=== PATIENT | male | born 1955 | race Caucasian/White ===

== ENCOUNTER 2017-11-18 13:20 | Observation (INO) | payer OTHER ==
[2017-11-18] MEDS ORDERED: HEPARIN SODIUM,PORCINE 5,000 UNIT/ML 1 ML VIAL ONE (16:00)
[2017-11-18] MEDS ORDERED: SODIUM CHLORIDE 0.9% 1,000 ML BAG ONE (16:00)
[2017-11-18] MEDS ORDERED: NITROGLYCERIN OINT 1 INCH/GM PACKET TOPICAL ONE (16:00)
[2017-11-18] MEDS ORDERED: metFORMIN 500 MG TAB ONE (16:00)
[2017-11-18] MEDS ORDERED: SODIUM CHLORIDE 0.9% 500 ML BAG ONE (16:00)
[2017-11-18] MEDS ORDERED: MELOXICAM 7.5 MG TAB ONE (16:00)
[2017-11-18] MEDS ORDERED: ASPIRIN 81 MG ONE (16:00)
[2017-11-18] MEDS ORDERED: HEPARIN SOD,PORK IN 0.45% NACL PMX 25,000 UNIT/500 ML BAG IV ONE (16:00)
--- NOTE | 2017-11-19 08:52 | XR ---
EXAMINATION TYPE: TEMPORARY DATE OF EXAM: 11/18/2017 COMPARISON: NONE INDICATION: Chest pain left arm pain shortness of breath history of asthma. TECHNIQUE: Frontal and lateral views of the chest are obtained. FINDINGS: The heart size is normal. The pulmonary vasculature is normal. At the first rib ends there is a 0.9 cm rounded density on this could be summation density. Underlyin g pulmonary nodules not excluded. Follow-up is recommended. No suspicious consolidations are evident.. IMPRESSION: 1. No acute pulmonary process. 2. Nodular density at the left apex. Follow-up exams are recommended. This could be related to summat ion density or be an intraparenchymal nodule.
--- NOTE | 2017-11-19 09:35 | CONS ---
CONSULTATION This is a 62-year-old gentleman with a known history of type 2 diabetes and hypertension, who sees a mineral engineer in the [facility] [place]. He has been under lot of stress with financial issues. 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 For the last 3 days he has been having pain in the left arm and also some pain in the left neck area with radiation seems more like a cervical radiculopathy type symptoms, but yesterday they got worse and the pain. He had some sharp pains in the left anterior chest and drove himself here to the emergency room. His troponins are normal. He is resting comfortably. EKG revealed a sinus bradycardia without any significant symptoms. The quality of chest pain is very atypical. About a year ago, he had a stress test which was normal according to the patient and this was performed by his mineral engineer in [place], [place]. At the time of my evaluation, he is asymptomatic, resting comfortably and indicates to me that stress may have caused his symptoms. PAST MEDICAL HISTORY: 1. Bronchial asthma. 2. Type 2 diabetes mellitus. 3. Hypertension. 4. Normal stress test per patient 1 year ago. MEDICATIONS: At home include metformin and losartan HCTZ and inhalants. On examination blood pressure is 140/70, pulse rate is 58 per minute. HEENT unremarkable. Fundus was not examined by me. Neck is supple. No JVD. I do not hear a carotid bruit. There is no thyromegaly. Heart exam reveals S1, S2 heard normally without a rub, murmur or gallop. Lungs are clear. Abdomen is soft, nontender. Lower extremity with normal pulses, no edema. Central nervous system is normal. EKG revealed sinus mechanism, no acute changes. LAB DATA: Revealed 3 sets of troponins are normal. IMPRESSION: 1. Atypical pain, probably some cervical arthritis with some radiculopathy type picture. No clinical evidence to suggest any acute ongoing myocardial ischemia. 2. Type 2 diabetes mellitus. 3. Hypertension. 4. History of bronchial asthma, which is not an active problem at this time. RECOMMENDATION: I am recommending that we discontinue heparin, increase activity. Initial EKG was reviewed, reveals sinus bradycardia. No acute changes. I am recommending that we can increase activity discharge the patient and have him follow up with his mineral engineer for probably a repeat stress testing down the road. In addition, he should have further investigation for his cervical radiculopathy type picture that he has. However, the symptoms have resolved. He may benefit from diagnostic tests and if necessary physical therapy. MMODL / IJN: [id number] /
[2017-11-19] MEDS ORDERED: MONTELUKAST 10 MG TAB PO PRN (09:47)
[2017-11-19] MEDS ORDERED: ALBUTEROL NEBULIZED 2.5 MG/3 ML INHALATION PRN (09:47)
[2017-11-19] MEDS ORDERED: LOSARTAN 50 MG TAB PO SCH (10:00)
[2017-11-19] MEDS ORDERED: metFORMIN 500 MG TAB PO SCH (10:00)
[2017-11-19] MEDS ORDERED: SYMBICORT 160-4.5 MCG INHALER INHALATION SCH (10:00)
[2017-11-19] MEDS ORDERED: FENOFIBRATE 160 MG TAB PO SCH (10:00)
[2017-11-19] MEDS ORDERED: MELOXICAM 7.5 MG TAB PO SCH (10:00)
[2017-11-19] MEDS ORDERED: PANTOPRAZOLE 40 MG TABLET PO SCH (10:00)
[2017-11-19] MEDS ORDERED: ASPIRIN 325 MG TAB PO SCH (10:00)
[2017-11-19] MEDS ORDERED: LOSARTAN-HCTZ 50-12.5 MG 1 EACH TAB PO SCH (10:00)
[2017-11-19] MEDS ORDERED: NITROGLYCERIN OINT 1 INCH/GM PACKET TOPICAL SCH (12:00)
[2017-11-19] MEDS ORDERED: MULTIVITAMINS, THERA 1 EACH TAB PO SCH (12:00)
[2017-11-19 12:10] VITALS: BP 124/77; PULSE 51; RESP 16; TEMP 98.1
--- NOTE | 2017-11-19 13:02 | HP ---
HISTORY AND PHYSICAL CHIEF COMPLAINT: Chest pain and shortness of breath. BRIEF HISTORY ON THIS PATIENT: This is a 62-year-old male patient with a history of diabetes type 2 and hypertension, who presented to ED yesterday with a complaint of sharp pain in the left anterior chest accompanied by shortness of breath. The patient relates that he is a parkinson by profession and he has been under lot of stress lately and for past 3 days, he has been having pain in his left arm with some aching and pain in the left neck area, which was associated with shortness of breath. There is no diaphoresis. The patient claims that the day of presenting to the ED, the symptoms got really worse and were associated with some shortness of breath and diaphoresis, so he drove himself to the emergency room. In the ED, patient's EKG showed sinus bradycardia and initial set of troponins was negative. The patient is admitted for further cardiac evaluation. 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 According to the patient, he had a stress test done about a year ago that was normal and it was done in [place], [place]. The patient has a past medical history that is significant for history of: 1. Hypertension. 2. Hyperlipidemia. 3. History of diabetes mellitus type 2. 4. History of asthma. 5. Gastroesophageal reflux disease and. 6. History of chronic back pain and. 7. History of DJD. 8. Chronic sinusitis. Past surgical history significant for: 1. Orthopedic surgeries on the left 4th and 5th digits. 2. Laser surgery for chronic sinusitis. The patient has no known allergies. MEDICATIONS: The patient is on: 1. Losartan with hydrochlorothiazide 100/12.5 mg 1 p.o. daily. 2. Fenofibrate 160 mg 1 p.o. daily. 3. Metformin 750 mg 1 p.o. daily. 4. Symbicort 160/4.5, 2 puffs inhaled b.i.d. 5. Multivitamins 1 p.o. daily. 6. Singulair 10 mg p.o. q.h.s. 7. Mobic 7.5 mg p.o. daily. 8. Prilosec 20 mg p.o. daily and also. 9. Albuterol 2.5 mg inhalation solution every 6 hours p.r.n. SOCIAL HISTORY: The patient denies any history of smoking or alcohol abuse, is a parkinson by profession, denies history of drug abuse. Family history is significant for a history of MO in maternal grandfather and history of coronary artery disease in mother, also gives history of dementia in both sets of grandparents. REVIEW OF SYSTEMS: ENT: Patient denies any hearing or vision loss. CARDIOVASCULAR: As described above. GI: Denies any nausea, vomiting or diarrhea. GENITOURINARY: No urinary frequency or dysuria. NERVOUS SYSTEM: Denies any headaches, lightheadedness dizziness. ALLERGY/IMMUNOLOGY: History of asthma as described above. MUSCULOSKELETAL: The patient has a history of DJD. HEMATOLOGY/ONCOLOGY: No history of anemia. ENDOCRINE: The patient has a history of diabetes type 2 as described above. CONSTITUTIONAL: No weight loss. No anorexia. DERMATOLOGY: No skin rashes or pigmentation. RHEUMATOLOGY: Polyarthralgias as described above. PSYCHIATRIC: No history of anxiety or depression. PHYSICAL EXAMINATION: Patient is awake, alert and oriented x3. He is in no acute distress. VITAL SIGNS: Temperature of 97.8, pulse 50, respirations 16, blood pressure 124/77, O2 saturation of 97% on room air. HEENT: Atraumatic, normocephalic. Pupils are equal and reactive to light. Extraocular movements are intact. Conjunctivae are normal. Buccal mucosa is fair. Neck is supple. No goiter or lymphadenopathy. JVD is negative. No carotid bruit heard. No lymph node enlargement. CARDIOVASCULAR SYSTEM: Heart is regular rate, rhythm. S1, S2 are heard normally. There is no murmur or gallop rhythm. Lungs are clear to auscultate without any rales, rhonchi or wheezes. ABDOMEN: Soft and nontender, nondistended. No organomegaly and bowel sounds are positive. EXTREMITIES: No edema, clubbing or cyanosis. Patient does have some arthritic changes in bilateral digits. NERVOUS SYSTEM: Patient is alert, oriented x3. He has no gross motor or sensory deficit. No focal deficit. LYMPHATIC SYSTEM: No lymph nodes are palpable in neck or axillae. Skin is without any ulcerations or a or rash or pigmentation. RHEUMATOLOGY: As above, patient does have some arthritic deformities in the fingers of both hands, but other than that, moves all 4 extremities and there are no joint effusions. LABORATORY AND X-RAY DATA: On admission shows all 3 sets of troponin were negative. Less than 0.012. PTT was 36.95. CK is 236, CK-MB 3.3 today. CBC: White blood count of 5.1, hemoglobin 14, hematocrit 41.2 and platelet count of 280. Chemical profile: Sodium 142, potassium 4.1, chloride 106, bicarb 25, BUN of 20, creatinine 0.9. An EKG as described above showed sinus bradycardia, no acute changes. Chest x-ray done on admission shows no acute pulmonary process, nodular density 0.9 cm at the where 1st rib ends, most likely summation density. ASSESSMENT: 1. Chest pain, rule out acute coronary syndrome. 2. Hypertension. 3. Hyperlipidemia. 4. Diabetes mellitus type 2. 5. Bronchial asthma. 6. Degenerative joint disease with the possible cervical involvement with elements of cervical radiculopathy. Plan is to admit the patient to observation unit, monitor cardiac enzymes, EKG, consult Cardiology, start patient on IV fluids. No IV heparin at this point. Resume all home medications. Accu-Cheks with sliding scale. Start patient on nitroglycerin paste 1 inch every 6 hours and aspirin 325 mg daily. Further recommendations per Cardiology. Patient is FULL CODE and DVT prophylaxis. MMODL / IJN: [id number] /
[2017-11-19 13:16] LABS: HCT 41.2 % (39.0-53.0); MCH 30.4 pg (25.0-35.0); MCHC 34.1 g/dL (31.0-37.0); MCV 89.3 fL (80.0-100.0); Mean Platelet Volume 6.5; Platelet Count 280 k/uL (150-450); RBC 4.61 m/uL (4.30-5.90); RDW 12.5 % (11.5-15.5); WBC 5.1 k/uL (3.8-10.6)
[2017-11-19 14:12] LABS: INR 1.1 (<1.2); Partial Thromboplastin Time 23.1 sec (22.0-30.0); Prothrombin Time 10.6 sec (9.0-12.0)
[2017-11-19 15:53] LABS: Creatine Kinase 236 U/L (55-170); Troponin I <0.012 ng/mL (0.000-0.034)
[2017-11-19 15:54] LABS: Creatine Kinase MB 3.3 ng/mL (0.0-2.4)
[2017-11-19 16:02] LABS: Eosinophils # (M) 0.31 k/uL (0-0.7); Lymphocytes # (M) 2.96 k/uL (1.0-4.8); Monocytes # (M) 0.36 k/uL (0-1.0); Neutrophils # (M) 1.48 k/uL (1.3-7.7); Neutrophils % (M) 29 %; Nucleated Red Blood Cells 0 /100 WBC (0-0); Total Cells Counted 100
[2017-11-19 16:03] LABS: Poikilocytosis (M) Present
[2017-11-19 16:26] LABS: ALT 46 U/L (21-72); AST 27 U/L (17-59); Albumin 4.1 g/dL (3.5-5.0); Alkaline Phosphatase 48 U/L (38-126); Anion Gap 11 mmol/L; Blood Urea Nitrogen 20 mg/dL (9-20); Calcium 9.7 mg/dL (8.4-10.2); Carbon Dioxide 25 mmol/L (22-30); Chloride 106 mmol/L (98-107); Glucose 88 mg/dL (74-99); Potassium 4.1 mmol/L (3.5-5.1); Sodium 142 mmol/L (137-145); Total Bilirubin 0.3 mg/dL (0.2-1.3)
[2017-11-19 17:00] LABS: Creatine Kinase 174 U/L (55-170); Troponin I <0.012 ng/mL (0.000-0.034)
[2017-11-19 17:02] LABS: Creatine Kinase MB 2.5 ng/mL (0.0-2.4)
[2017-11-19 17:57] LABS: Creatine Kinase 198 U/L (55-170); Troponin I <0.012 ng/mL (0.000-0.034)
[2017-11-19 17:58] LABS: Creatine Kinase MB 2.7 ng/mL (0.0-2.4)
[2017-11-19 19:49] LABS: Hemoglobin A1C 5.7 % (4.0-6.0)
--- NOTE | 2017-12-24 13:02 | DS ---
DISCHARGE SUMMARY DATE OF ADMISSION: 11/23/2017. DISCHARGE DATE: 11/08/2017 BRIEF HISTORY: The patient is a 62-year-old male with a history of diabetes mellitus, type 2, history of hypertension. He presented to ED with the complaint of left anterior chest pain that started when he was at work. 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 He was short of breath at the same time. PAST MEDICAL HISTORY: 1. Hypertension. 2. Hyperlipidemia. 3. Diabetes mellitus, type 2. 4. Asthma. 5. Gastroesophageal reflux disease. 6. Chronic back pain. 7. DJD. 8. Chronic sinusitis. PAST SURGICAL HISTORY: 1. Surgeries on left fourth and fifth digits. 2. Laser surgery for chronic sinusitis. MEDICATIONS: Patient is takin. Losartan with hydrochlorothiazide. 2. Fenofibrate. 3. Metformin. 4. Symbicort. 5. Multivitamin. 6. Singulair. 7. Mobic. 8. Prilosec. 9. Albuterol. BRIEF HOSPITAL COURSE: The patient was admitted to telemetry with a plan to monitor cardiac enzymes, EKG. Patient was started on IV fluids. He was started on IV heparin in the ED which was later discontinued by Cardiology due to low suspicion for coronary artery disease. All home medications were continued. Patient's blood sugars were monitored closely and were covered with sliding scale as needed. In the ED patient was started on nitroglycerin paste and aspirin. Cardiology saw the patient and recommended IV heparin to be discontinued. They did recommend a stress test as an outpatient in the near future. The patient was also recommended to follow up with primary care with possible cervical radiculopathy and possible physical therapy. The patient did not have any further complications after that. He was then discharged in stable condition with: 1. Ventolin nebulizer 2.5 mg every 6 hours as needed. 2. Aspirin 325 mg daily. 3. Symbicort 2 puffs b.i.d. 4. Fenofibrate 160 mg p.o. daily. 5. Mobic 7.5 mg p.o. daily. 6. Singulair 10 mg p.o. daily. 7. Multivitamin 1 daily. 8. Protonix 40 mg daily. He was discharged with a plan to follow up with his primary care physician and to follow up with Cardiology as an outpatient. MMODL / IJN: [id number] /
== END 2017-11-19 14:00 | disposition home or self-care (01) ==
LOC: EC 13:20 → 3OBS 17:15 → EC 17:26 → UNDOADMOB 17:26 → 3OBS 17:26 → EC 17:27 → 3OBS 17:27 → UNDOADMOB 17:27 → UNDODISOB 11-19 14:00 → EDSTATUS 12-17 23:46
PROVIDERS: ADMIT Internal Medicine; ATTEND Internal Medicine
DX: R07.89 Other chest pain (principal); M79.602 Pain in left arm; R61 Generalized hyperhidrosis; I10 Essential (primary) hypertension; E78.5 Hyperlipidemia, unspecified; E11.9 Type 2 diabetes mellitus without complications; J45.909 Unspecified asthma, uncomplicated; M19.90 Unspecified osteoarthritis, unspecified site; K21.9 Gastro-esophageal reflux disease without esophagitis; M54.9 Dorsalgia, unspecified; G89.29 Other chronic pain; J32.9 Chronic sinusitis, unspecified; F43.9 Reaction to severe stress, unspecified; Z79.84 Long term (current) use of oral hypoglycemic drugs; Z79.1 Long term (current) use of non-steroidal anti-inflammatories (NSAID); Z79.51 Long term (current) use of inhaled steroids; Z79.899 Other long term (current) drug therapy; Z82.49 Family history of ischemic heart disease and other diseases of the circulatory system
CPT/HCPCS: 99291 ×2; 93005; 80053; 82550 ×2; 82553 ×2; 84484 ×2; 85025; 85610; 85730 ×2; 83036; 71020; G0378 ×2; J1644 ×2

== ENCOUNTER 2019-09-09 12:05 | Observation (INO) | payer OTHER ==
[2019-09-09] MEDS ORDERED: ASPIRIN 81 MG PO STA (12:51)
[2019-09-09] MEDS ORDERED: NITROGLYCERIN OINT 1 INCH/GM PACKET TOPICAL STA (12:51)
--- NOTE | 2019-09-09 12:57 | ED ---
General Adult HPI - General Chief complaint: Chest Pain Stated complaint: Chest Pain, Back Spasms, Diabetic Time Seen by Provider: 09/09/19 12:25 Source: patient, RN notes reviewed Mode of arrival: wheelchair Limitations: no limitations - History of Present Illness Initial comments: Patient is a pleasant 64-year-old male presenting to the emergency department with back and chest discomfort. Onset of symptoms was yesterday at a wedding. Patient reached back and had sudden severe spasms of left upper back. Patient also had mild ache of the left arm. Back spasms only lasted about 5 minutes then resolved and then gone since that time. Arm discomfort remains however is very mild. Patient has mild ache in his chest today that is rated 1 or 2/10. Patient was sweaty yesterday with back discomfort. No nausea or dyspnea. Last stress test was around 6 months ago reported as normal. - Related Data Home Medications Medication Instructions Recorded Confirmed Albuterol Nebulized [Ventolin 2.5 mg INHALATION RT-Q6H PRN 11/19/17 09/09/19 Nebulized] Aspirin 81 mg PO DAILY 11/19/17 09/09/19 Losartan/Hydrochlorothiazide 1 tab PO DAILY 11/19/17 09/09/19 [Losartan-Hctz 100-25 mg Tab] Montelukast [Singulair] 10 mg PO HS 11/19/17 09/09/19 Multivitamins, Thera [Multivitamin 1 tab PO DAILY 11/19/17 09/09/19 (formulary)] Omeprazole [PriLOSEC] 20 mg PO DAILY 11/19/17 09/09/19 metFORMIN HCL [metFORMIN HCL ER] 750 mg PO HS 11/19/17 09/09/19 Albuterol Inhaler [Ventolin Hfa 1 - 2 puff INHALATION RT-Q6H PRN 09/09/19 09/09/19 Inhaler] Cholecalciferol [Vitamin D3 (25 2,000 unit PO DAILY 09/09/19 09/09/19 Mcg = 1000 Iu)] Rosuvastatin [Crestor] 5 mg PO HS 09/09/19 09/09/19 Previous Rx's Medication Instructions Recorded Budesonide-Formot 160-4.5 Mcg 2 puff INHALATION RT-BID puff 11/19/17 [Symbicort 160-4.5 Mcg Inhaler] Meloxicam [Mobic] 7.5 mg PO DAILY tab 11/19/17 Allergies Allergy/AdvReac Type Severity Reaction Status Date / Time No Known Allergies Allergy Verified 09/09/19 12:41 Review of Systems ROS Statement: Those systems with pertinent positive or pertinent negative responses have been documented in the HPI. ROS Other: All systems not noted in ROS Statement are negative. Constitutional: Denies: fever Eyes: Denies: eye pain ENT: Denies: ear pain Respiratory: Denies: cough Cardiovascular: Reports: as per HPI, chest pain Endocrine: Denies: fatigue Gastrointestinal: Denies: abdominal pain Genitourinary: Denies: dysuria Musculoskeletal: Reports: as per HPI Skin: Denies: rash Neurological: Denies: weakness Past Medical History Past Medical History: Asthma, Coronary Artery Disease (CAD), Diabetes Mellitus, GERD/Reflux, Hyperlipidemia, Hypertension Additional Past Medical History / Comment(s): seasonal allergies History of Any Multi-Drug Resistant Organisms: None Reported Past Surgical History: Orthopedic Surgery Additional Past Surgical History / Comment(s): finger Past Psychological History: No Psychological Hx Reported Smoking Status: Never smoker Past Alcohol Use History: Occasional Past Drug Use History: None Reported General Exam Limitations: no limitations General appearance: alert, in no apparent distress Head exam: Present: normocephalic Eye exam: Present: normal appearance, PERRL ENT exam: Present: normal oropharynx Neck exam: Present: normal inspection Respiratory exam: Present: normal lung sounds bilaterally. Absent: chest wall tenderness Cardiovascular Exam: Present: regular rate, normal rhythm Expanded Peripheral pulses: 2+: Radial (R), Radial (L), Posterior Tibialis (R), Posterior Tibialis (L), Dorsalis Pedis (R), Dorsalis Pedis (L) GI/Abdominal exam: Present: soft. Absent: tenderness Extremities exam: Present: normal inspection, full ROM. Absent: tenderness Back exam: Present: normal inspection. Absent: tenderness Neurological exam: Present: alert Psychiatric exam: Present: normal affect, normal mood Skin exam: Present: normal color Course Vital Signs 09/09/19 09/09/19 09/09/19 12:16 12:50 13:23 Temperature 98.2 F Pulse Rate 66 62 Pulse Rate [ 62 [employer] ] Respiratory 18 16 16 Rate Blood Pressure 130/78 116/63 O2 Sat by Pulse 98 99 Oximetry EKG Findings - EKG Comments: EKG Findings:: Sinus rhythm at 63. PVC is present. MI 184. QRS 90. QT 420. QTc 429. Normal axis. Normal QRS. No acute ST change. Medical Decision Making - Medical Decision Making Patient reevaluated and resting comfortably in bed. Patient and family updated on results and plan. Case was discussed in detail with Dr. Lira, covering for Dr. Ball, who admits for Dr. Pappas. - Lab Data Result diagrams: 09/09/19 13:02 09/09/19 13:02 Lab Results 09/09/19 09/09/19 09/09/19 Range/Units 13:02 13:02 13:02 WBC 5.9 (3.8-10.6) k/uL RBC 4.30 (4.30-5.90) m/uL Hgb 13.0 (13.0-17.5) gm/dL Hct 38.5 L (39.0-53.0) % MCV 89.4 (80.0-100.0) fL MCH 30.3 (25.0-35.0) pg MCHC 33.8 (31.0-37.0) g/dL RDW 13.0 (11.5-15.5) % Plt Count 258 (150-450) k/uL Neutrophils % 43 % Lymphocytes % 43 % Monocytes % 8 % Eosinophils % 3 % Basophils % 1 % Neutrophils # 2.5 (1.3-7.7) k/uL Lymphocytes # 2.5 (1.0-4.8) k/uL Monocytes # 0.4 (0-1.0) k/uL Eosinophils # 0.2 (0-0.7) k/uL Basophils # 0.0 (0-0.2) k/uL PT 10.1 (9.0-12.0) sec INR 0.9 (<1.2) APTT 24.1 (22.0-30.0) sec Sodium 141 (137-145) mmol/L Potassium 4.0 (3.5-5.1) mmol/L Chloride 106 (98-107) mmol/L Carbon Dioxide 25 (22-30) mmol/L Anion Gap 10 mmol/L BUN 16 (9-20) mg/dL Creatinine 0.79 (0.66-1.25) mg/dL Est GFR (CKD-EPI)AfAm >90 (>60 ml/min/1.73 sqM) Est GFR (CKD-EPI)NonAf >90 (>60 ml/min/1.73 sqM) Glucose 113 H (74-99) mg/dL Calcium 9.2 (8.4-10.2) mg/dL Magnesium 2.0 (1.6-2.3) mg/dL Total Bilirubin 0.3 (0.2-1.3) mg/dL AST 30 (17-59) U/L ALT 32 (21-72) U/L Alkaline Phosphatase 83 (38-126) U/L Troponin I (0.000-0.034) ng/mL Total Protein 7.1 (6.3-8.2) g/dL Albumin 4.0 (3.5-5.0) g/dL 09/09/19 Range/Units 13:02 WBC (3.8-10.6) k/uL RBC (4.30-5.90) m/uL Hgb (13.0-17.5) gm/dL Hct (39.0-53.0) % MCV (80.0-100.0) fL MCH (25.0-35.0) pg MCHC (31.0-37.0) g/dL RDW (11.5-15.5) % Plt Count (150-450) k/uL Neutrophils % % Lymphocytes % % Monocytes % % Eosinophils % % Basophils % % Neutrophils # (1.3-7.7) k/uL Lymphocytes # (1.0-4.8) k/uL Monocytes # (0-1.0) k/uL Eosinophils # (0-0.7) k/uL Basophils # (0-0.2) k/uL PT (9.0-12.0) sec INR (<1.2) APTT (22.0-30.0) sec Sodium (137-145) mmol/L Potassium (3.5-5.1) mmol/L Chloride (98-107) mmol/L Carbon Dioxide (22-30) mmol/L Anion Gap mmol/L BUN (9-20) mg/dL Creatinine (0.66-1.25) mg/dL Est GFR (CKD-EPI)AfAm (>60 ml/min/1.73 sqM) Est GFR (CKD-EPI)NonAf (>60 ml/min/1.73 sqM) Glucose (74-99) mg/dL Calcium (8.4-10.2) mg/dL Magnesium (1.6-2.3) mg/dL Total Bilirubin (0.2-1.3) mg/dL AST (17-59) U/L ALT (21-72) U/L Alkaline Phosphatase (38-126) U/L Troponin I <0.012 (0.000-0.034) ng/mL Total Protein (6.3-8.2) g/dL Albumin (3.5-5.0) g/dL - Radiology Data Radiology results: report reviewed (CT angios chest shows no acute process), image reviewed (Chest x-ray shows no acute process) Disposition Clinical Impression: Chest pain, Back pain Disposition: ADMITTED IP TO THIS HOSP Is patient prescribed a controlled substance at d/c from ED?: No Referrals: Ivan Pappas MD [Primary Care Provider] - 1-2 days Decision Time: 15:10
[2019-09-09 13:14] LABS: Basophils % (A) 1 %; Eosinophils # (A) 0.2 k/uL (0-0.7); Eosinophils % (A) 3 %; HCT 38.5 % (39.0-53.0); Lymphocytes # (A) 2.5 k/uL (1.0-4.8); Lymphocytes % (A) 43 %; MCH 30.3 pg (25.0-35.0); MCHC 33.8 g/dL (31.0-37.0); MCV 89.4 fL (80.0-100.0); Monocytes # (A) 0.4 k/uL (0-1.0); Monocytes % (A) 8 %; Neutrophils # (A) 2.5 k/uL (1.3-7.7); Neutrophils % (A) 43 %; Platelet Count 258 k/uL (150-450); WBC 5.9 k/uL (3.8-10.6)
[2019-09-09 13:22] LABS: INR 0.9 (<1.2); Partial Thromboplastin Time 24.1 sec (22.0-30.0); Prothrombin Time 10.1 sec (9.0-12.0)
[2019-09-09 13:23] LABS: ALT 32 U/L (21-72); AST 30 U/L (17-59); African American GFR (CKD) >90 (>60 ml/min/1.73 sqM); Alkaline Phosphatase 83 U/L (38-126); Anion Gap 10 mmol/L; Blood Urea Nitrogen 16 mg/dL (9-20); Calcium 9.2 mg/dL (8.4-10.2); Carbon Dioxide 25 mmol/L (22-30); Chloride 106 mmol/L (98-107); Glucose 113 mg/dL (74-99); Sodium 141 mmol/L (137-145); Total Bilirubin 0.3 mg/dL (0.2-1.3); Total Protein 7.1 g/dL (6.3-8.2)
--- NOTE | 2019-09-09 13:51 | XR ---
EXAMINATION TYPE: XR chest 2V DATE OF EXAM: 09/09/2019 HISTORY: Chest Pain. REFERENCE: Previous study dated 11/18/2017. FINDINGS: Lungs remain clear. Pleural space are clear. The heart is not enlarged. IMPRESSION: NO ACUTE INTRATHORACIC ABNORMALITY.
--- NOTE | 2019-09-09 14:41 | CT ---
EXAMINATION TYPE: CT angio chest DATE OF EXAM: 09/09/2019 2:24 PM COMPARISON: None HISTORY: Left sided chest pain. CT DLP: 1247.4 mGycm Automated exposure control for dose reduction was used. CONTRAST: CTA scan of the thorax is performed without and with IV Contrast, patient injected with 100 mL of Iso juan a 370. FINDINGS: No aortic intramural hematoma. No aortic dissection flap nor thoracic aneurysm. No calcified or nonca lcified atherosclerotic plaque of the thoracic aorta. Minimal peripheral calcified plaque of the abdo joan aorta including at the right renal artery ostia. No pulmonary arterial enlargement. Heart is within normal limits of size without pericardial effusion. Calcified plaque along the left c oronary artery course. No suspicious mediastinal lymph nodes. The lungs are clear. Hyperdense right lower lobe lung nodule favors granuloma. Tracheobronchial tree is patent. Moderate degenerative changes throughout the thoracic spine characterized by osteophyte formation, en dplate Schmorl's nodes, and vacuum disc phenomenon. Imaged upper abdomen is within normal limits. Incidental splenule. IMPRESSION: No acute intrathoracic process.
[2019-09-09] MEDS ORDERED: NITROGLYCERIN SL TABS 0.4 MG TAB SUBLINGUAL PRN (15:10)
[2019-09-09] MEDS ORDERED: ALBUTEROL NEBULIZED 2.5 MG/3 ML INHALATION PRN (15:54)
[2019-09-09 16:37] LABS: Glucose,Whole Blood 106 mg/dL (75-99)
[2019-09-09 16:43] VITALS: BMI 28.0
[2019-09-09] MEDS ORDERED: CYCLOBENZAPRINE 10 MG TAB PO STA (17:03)
[2019-09-09] MEDS ORDERED: MAG HYDROX/AL HYDROX/SIMETH 30 ML CUP PO PRN (17:04)
[2019-09-09] MEDS ORDERED: NITROGLYCERIN OINT 1 INCH/GM PACKET TOPICAL SCH (18:00)
--- NOTE | 2019-09-09 18:15 | P.CRDCN ---
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 The patient was in his usual state of health until yesterday when he was at a wedding and suddenly developed chest discomfort and back discomfort. The chest discomfort was associated with profound sweating. No nausea or vomiting, heart racing or fluttering, dizziness, or syncope. The discomfort lasted for about 4-5 minutes only. He has been chest pain-free during his hospitalization. The patient was not aware of any prior history of coronary artery disease or coronary artery angioplasty and stenting. He stated that in January 2019 he underwent a stress test and the monitor by his tallow refiner and both came in to be unremarkable. The EKG showed sinus rhythm with sinus bradycardia. The first set of troponin came in to be unremarkable. The patient continues to be chest pain-free. Past Medical History Past Medical History: Asthma, Coronary Artery Disease (CAD), Diabetes Mellitus, GERD/Reflux, Hyperlipidemia, Hypertension Additional Past Medical History / Comment(s): seasonal allergies History of Any Multi-Drug Resistant Organisms: None Reported Past Surgical History: Orthopedic Surgery Additional Past Surgical History / Comment(s): finger Past Anesthesia/Blood Transfusion Reactions: No Reported Reaction Past Psychological History: No Psychological Hx Reported Smoking Status: Never smoker Past Alcohol Use History: Occasional Past Drug Use History: None Reported - Past Family History Father History Unknown: Yes Mother Family Medical History: Diabetes Mellitus Medications and Allergies Home Medications Medication Instructions Recorded Confirmed Type Albuterol Nebulized [Ventolin 2.5 mg INHALATION RT-Q6H PRN 11/19/17 09/09/19 History Nebulized] Aspirin 81 mg PO DAILY 11/19/17 09/09/19 History Budesonide-Formot 160-4.5 Mcg 2 puff INHALATION RT-BID puff 11/19/17 09/09/19 Rx [Symbicort 160-4.5 Mcg Inhaler] Losartan/Hydrochlorothiazide 1 tab PO DAILY 11/19/17 09/09/19 History [Losartan-Hctz 100-25 mg Tab] Meloxicam [Mobic] 7.5 mg PO DAILY tab 11/19/17 09/09/19 Rx Montelukast [Singulair] 10 mg PO HS 11/19/17 09/09/19 History Multivitamins, Thera [Multivitamin 1 tab PO DAILY 11/19/17 09/09/19 History (formulary)] Omeprazole [PriLOSEC] 20 mg PO DAILY 11/19/17 09/09/19 History metFORMIN HCL [metFORMIN HCL ER] 750 mg PO HS 11/19/17 09/09/19 History Albuterol Inhaler [Ventolin Hfa 1 - 2 puff INHALATION RT-Q6H PRN 09/09/19 09/09/19 History Inhaler] Cholecalciferol [Vitamin D3 (25 2,000 unit PO DAILY 09/09/19 09/09/19 History Mcg = 1000 Iu)] Rosuvastatin [Crestor] 5 mg PO HS 09/09/19 09/09/19 History Allergies Allergy/AdvReac Type Severity Reaction Status Date / Time No Known Allergies Allergy Verified 09/09/19 12:41 Physical Exam Vitals: Vital Signs Temp Pulse Pulse Resp BP BP Pulse Ox 09/09/19 16:00 98.2 F 59 L 16 146/97 97 09/09/19 15:42 95 09/09/19 15:32 58 L 16 116/55 99 09/09/19 13:23 62 16 116/63 99 09/09/19 12:50 62 16 09/09/19 12:16 98.2 F 66 18 130/78 98 Intake and Output 09/09/19 09/09/19 09/09/19 06:59 14:59 22:59 Intake Total 260 Balance 260 Intake: Oral 260 Other: Weight 92.079 kg - Constitutional General appearance: no acute distress - Respiratory Respiratory: bilateral: CTA - Cardiovascular Rhythm: regular Heart sounds: normal: S1, S2 Results 09/09/19 13:02 09/09/19 13:02 Cardiac Enzymes 09/09/19 09/09/19 Range/Units 13:02 13:02 AST 30 (17-59) U/L Troponin I <0.012 (0.000-0.034) ng/mL Coagulation 09/09/19 Range/Units 13:02 PT 10.1 (9.0-12.0) sec APTT 24.1 (22.0-30.0) sec CBC 09/09/19 Range/Units 13:02 WBC 5.9 (3.8-10.6) k/uL RBC 4.30 (4.30-5.90) m/uL Hgb 13.0 (13.0-17.5) gm/dL Hct 38.5 L (39.0-53.0) % Plt Count 258 (150-450) k/uL Comprehensive Metabolic Panel 09/09/19 Range/Units 13:02 Sodium 141 (137-145) mmol/L Potassium 4.0 (3.5-5.1) mmol/L Chloride 106 (98-107) mmol/L Carbon Dioxide 25 (22-30) mmol/L BUN 16 (9-20) mg/dL Creatinine 0.79 (0.66-1.25) mg/dL Glucose 113 H (74-99) mg/dL Calcium 9.2 (8.4-10.2) mg/dL AST 30 (17-59) U/L ALT 32 (21-72) U/L Alkaline Phosphatase 83 (38-126) U/L Total Protein 7.1 (6.3-8.2) g/dL Albumin 4.0 (3.5-5.0) g/dL Current Medications Generic Name Dose Route Start Last Admin Trade Name Freq PRN Reason Stop Dose Admin Al Hydroxide/Mg Hydroxide 30 ml 09/09/19 17:04 09/09/19 17:30 Maalox PO 30 ml QID PRN Administration Heartburn Albuterol Sulfate 2.5 mg 09/09/19 15:54 Ventolin Nebulized INHALATION RT-Q6H PRN Shortness Of Breath Aspirin 325 mg 09/10/19 09:00 Aspirin PO DAILY [facility] Atorvastatin Calcium 10 mg 09/09/19 21:00 Lipitor PO HS [facility] Budesonide/Formoterol Fumarate 2 puff 09/09/19 20:00 Symbicort 160-4.5 Mcg Inhaler INHALATION RT-BID [facility] Cholecalciferol 2,000 unit 09/10/19 09:00 Vitamin D3 (25 Mcg = 1000 Iu) PO DAILY [facility] Montelukast Sodium 10 mg 09/09/19 21:00 Singulair PO HS [facility] Multivitamins 1 each 09/10/19 09:00 Theragran PO DAILY [facility] Nitroglycerin 0.4 mg 09/09/19 15:10 Nitrostat SUBLINGUAL Q5M PRN Chest Pain Pantoprazole Sodium 40 mg 09/10/19 09:00 Protonix PO DAILY [facility] Sodium Chloride 10 ml 09/09/19 21:00 Saline Flush IV BID [facility] Intake and Output 09/09/19 09/09/19 09/09/19 06:59 14:59 22:59 Intake Total 260 Balance 260 Intake: Oral 260 Other: Weight 92.079 kg Patient Weight 09/10/19 06:59 Weight 92.079 kg 09/09/19 13:02 09/09/19 13:02 Assessment and Plan Assessment: Assessment #1 atypical chest discomfort #2 diabetes type 2 #3 hypertension #4 dyslipidemia #5 sinus bradycardia Plan #1 rule out acute coronary event. We'll follow-up with the serial cardiac enzymes #2 rule out severe coronary artery disease. If the cardiac enzymes came in to be unremarkable I do think that the patient need to have a stress test giving his multiple risk factors #3 continue monitor the blood pressure and heart rate #4 follow-up with the patient Thank you for allowing us participate in his care
--- NOTE | 2019-09-09 18:29 | P.HPIM ---
History of Present Illness H&P Date: 09/09/19 Chief Complaint: Chest pain Patient is a 64-year-old male with a known history of asthma, hypertension, hyperlipidemia and diabetes type 2 came to ER with the complaints of sudden onset of back pain radiating to the left side of the chest and left arm numbness since yesterday. Patient was at his sister's wedding and try to get any box under the shower while extending his left shoulder and suddenly developed spasms of his lower back. Patient also felt aching of the left arm and slight numbness. Spasms last about 5 minutes and resolved but arm discomfort remained at this time. Today patient also developed mild chest pain, sharp 2 out of 10 and became very sweaty. Patient's friend advised him to go to ER to get his heart checked. Denied any shortness of breath. Patient says that he had stress test about 6 months ago which was normal. Denied any recent history of cough or sputum production. No upper respiratory infections. Patient does have GERD-like symptoms occasionally. No nausea vomiting or abdominal pain now. No diarrhea. Chest x-ray showed no acute intrathoracic abnormality. CT angiogram of the chest showed no intrathoracic process. EKG showed normal sinus rhythm Review of Systems Constitutional: Patient denies any fever or chills . No generalized weakness or weight loss. Abdomen: Patient denied nausea vomiting and diarrhea and abdominal pain. Cardiovascular: Patient denies any chest pain or short of breath no palpitations. Respiratory: patient denied any cough is from production. No shortness of breath Neurologic: Patient denied any numbness or tingling headache. Musculoskeletal: Patient denies any complaints of joint swelling or deformity. Skin: Negative Psychiatric: Negative Endocrine: No heat or cold intolerance. No recent weight gain. Genitourinary: No dysuria or hematuria. All other 14 point ROS negative except the above Past Medical History Past Medical History: Asthma, Coronary Artery Disease (CAD), Diabetes Mellitus, GERD/Reflux, Hyperlipidemia, Hypertension Additional Past Medical History / Comment(s): seasonal allergies History of Any Multi-Drug Resistant Organisms: None Reported Past Surgical History: Orthopedic Surgery Additional Past Surgical History / Comment(s): finger Past Psychological History: No Psychological Hx Reported Smoking Status: Never smoker Past Alcohol Use History: Occasional Past Drug Use History: None Reported - Past Family History Father History Unknown: Yes Mother Family Medical History: Diabetes Mellitus Medications and Allergies Home Medications Medication Instructions Recorded Confirmed Type Albuterol Nebulized [Ventolin 2.5 mg INHALATION RT-Q6H PRN 11/19/17 09/09/19 History Nebulized] Aspirin 81 mg PO DAILY 11/19/17 09/09/19 History Budesonide-Formot 160-4.5 Mcg 2 puff INHALATION RT-BID puff 11/19/17 09/09/19 Rx [Symbicort 160-4.5 Mcg Inhaler] Losartan/Hydrochlorothiazide 1 tab PO DAILY 11/19/17 09/09/19 History [Losartan-Hctz 100-25 mg Tab] Meloxicam [Mobic] 7.5 mg PO DAILY tab 11/19/17 09/09/19 Rx Montelukast [Singulair] 10 mg PO HS 11/19/17 09/09/19 History Multivitamins, Thera [Multivitamin 1 tab PO DAILY 11/19/17 09/09/19 History (formulary)] Omeprazole [PriLOSEC] 20 mg PO DAILY 11/19/17 09/09/19 History metFORMIN HCL [metFORMIN HCL ER] 750 mg PO HS 11/19/17 09/09/19 History Albuterol Inhaler [Ventolin Hfa 1 - 2 puff INHALATION RT-Q6H PRN 09/09/19 09/09/19 History Inhaler] Cholecalciferol [Vitamin D3 (25 2,000 unit PO DAILY 09/09/19 09/09/19 History Mcg = 1000 Iu)] Rosuvastatin [Crestor] 5 mg PO HS 09/09/19 09/09/19 History Allergies Allergy/AdvReac Type Severity Reaction Status Date / Time No Known Allergies Allergy Verified 09/09/19 12:41 Physical Exam Vitals: Vital Signs Temp Pulse Pulse Resp BP Pulse Ox 09/09/19 15:42 95 09/09/19 15:32 58 L 16 116/55 99 09/09/19 13:23 62 16 116/63 99 09/09/19 12:50 62 16 09/09/19 12:16 98.2 F 66 18 130/78 98 Intake and Output 09/09/19 09/09/19 09/09/19 06:59 14:59 22:59 Other: Weight 92.079 kg PHYSICAL EXAMINATION: Patient is lying in the bed comfortably, no acute distress, awake alert and oriented.. HEENT: Normocephalic. Neck is supple. Pupils reactive. Nostrils clear. Oral cavity is moist. Ears reveal no drainage. Neck reveals no JVD, carotid bruits, or thyromegaly. CHEST EXAMINATION: Trachea is central. Symmetrical expansion. Lung velásquez clear to auscultation and percussion. CARDIAC: Normal S1, S2 with no gallops. No murmurs ABDOMEN: Soft. Bowel sounds normal. No organomegaly. No abdominal bruits. Extremities: reveal no edema. No clubbing or cyanosis Neurologically awake, alert, oriented x3 with well-coordinated movements. No focal deficits noted Skin: No rash or skin lesions. Psychiatric: Coperative. Nonsuicidal Musculoskeletal: No joint swelling or deformity. Normal range of motion. Results CBC & Chem 7: 09/09/19 13:02 09/09/19 13:02 Labs: Abnormal Lab Results - Last 24 Hours (Table) 09/09/19 09/09/19 Range/Units 13:02 13:02 Hct 38.5 L (39.0-53.0) % Glucose 113 H (74-99) mg/dL Thrombosis Risk Factor Assmnt - DVT/VTE Prophylaxis DVT/VTE Prophylaxis: Pharmacologic Prophylaxis ordered Assessment and Plan Assessment: Atypical chest pain. Rule out ACS. Could be musculoskeletal. Sinus bradycardia Mild intermittent asthma Seasonal ALLERGIES Diabetes type 2 Hypertension Hyperlipidemia GERD DVT prophylaxis T now call use Plan: Patient will be continued on telemetry monitoring. Serial EKG and troponins. Initial troponin is negative. CTA chest showed no evidence of dissection. Cardiology was consulted. Further recommendations based on the clinical course. Time with Patient: Greater than 30
[2019-09-09 20:27] LABS: Glucose,Whole Blood 100 mg/dL (75-99)
[2019-09-09] MEDS ORDERED: MONTELUKAST 10 MG TAB PO SCH (21:00)
[2019-09-09] MEDS ORDERED: ATORVASTATIN 10 MG TAB PO SCH (21:00)
[2019-09-09] MEDS: SYMBICORT 160-4.5 MCG INHALER INHALATION SCH (21:30)
[2019-09-10 01:34] LABS: Cholesterol 141 mg/dL (<200); HDL Cholesterol 21 mg/dL (40-60); LDL Cholesterol,Calculated 54 mg/dL (0-99); Triglycerides 332 mg/dL (<150)
[2019-09-10] MEDS: SYMBICORT 160-4.5 MCG INHALER INHALATION SCH (08:10)
[2019-09-10] MEDS ORDERED: CHOLECALCIFEROL 1,000 UNIT TAB PO SCH (09:00)
[2019-09-10] MEDS ORDERED: ASPIRIN 325 MG TAB PO SCH (09:00)
[2019-09-10] MEDS ORDERED: PANTOPRAZOLE 40 MG TABLET PO SCH (09:00)
[2019-09-10] MEDS ORDERED: MULTIVITAMINS, THERA 1 EACH TAB PO SCH (09:00)
[2019-09-10 09:19] LABS: HGB 14.1 gm/dL (13.0-17.5); MCH 29.7 pg (25.0-35.0); MCV 92.7 fL (80.0-100.0); Platelet Count 264 k/uL (150-450); RBC 4.75 m/uL (4.30-5.90); WBC 7.5 k/uL (3.8-10.6)
[2019-09-10 09:29] LABS: African American GFR (CKD) >90 (>60 ml/min/1.73 sqM); Anion Gap 8 mmol/L; Blood Urea Nitrogen 17 mg/dL (9-20); Calcium 9.3 mg/dL (8.4-10.2); Carbon Dioxide 25 mmol/L (22-30); Chloride 108 mmol/L (98-107); Glucose 124 mg/dL (74-99); Magnesium 1.9 mg/dL (1.6-2.3); Potassium 4.2 mmol/L (3.5-5.1); Sodium 141 mmol/L (137-145)
[2019-09-10] MEDS ORDERED: REGADENOSON 0.4 MG/5 ML SYRINGE IV ONE (09:51)
[2019-09-10] MEDS ORDERED: CAFFEINE CITRATE 60 MG/3 ML VIAL IV PRN (09:51)
[2019-09-10] MEDS ORDERED: AMINOPHYLLINE 500 MG/20 ML VIAL IV PRN (09:51)
[2019-09-10] MEDS ORDERED: DIPYRIDAMOLE IV ONE (10:30)
[2019-09-10] MEDS ORDERED: SODIUM CHLORIDE 0.9% IV ONE (10:30)
--- NOTE | 2019-09-10 11:53 | P.PN ---
Subjective Patient is doing well from a cardiac standpoint. Denies any chest discomfort. He continues to burp. He has not had any left shoulder pain are back pain He denies any dizziness lightheadedness He specifically denied coronary artery disease the chart states coronary artery disease in his past medical history His twelve-lead ECG shows sinus rhythm normal OH narrow QRS normal ST segments with PVCs Toni enzymes are normal at lites normal hemoglobin normal LDL 54 triglycerides 332 On examination afebrile 98.2F, pulse rate in the 60s, blood pressure 129/87 mmHg Breath sounds are clear no rhonchi no crackles Heart sounds S1 and S2 are normal no murmurs or gallops or rub Abdomen soft nontender No JVD no hepatojugular reflux Impression Patient admitted with symptoms suggestive of angina but abnormal cardiac enzymes. A stress test was recommended if cardiac enzymes are normal His factors include diabetes hypertension and hypertriglyceridemia Plan Proceed with exercise Cardilate stress test. Further management thereafter Objective - Vital Signs Vital signs: Vital Signs Temp 98.2 F 09/10/19 08:00 Pulse 69 09/10/19 08:00 Resp 14 09/10/19 08:00 BP 129/87 09/10/19 08:00 Pulse Ox 98 09/10/19 08:00 Intake & Output 09/09/19 09/10/19 09/10/19 18:59 06:59 18:59 Intake Total 260 Balance 260 Weight 92.079 kg 92.9 kg Intake: Oral 260 Other: Voiding Method Toilet Toilet # Voids 2 - Labs CBC & Chem 7: 09/10/19 08:58 09/10/19 08:58 Labs: Abnormal Lab Results - Last 24 Hours (Table) 09/09/19 09/09/19 09/09/19 Range/Units 13:02 13:02 16:36 Hct 38.5 L (39.0-53.0) % Chloride (98-107) mmol/L Glucose 113 H (74-99) mg/dL POC Glucose (mg/dL) 106 H (75-99) mg/dL Triglycerides (<150) mg/dL HDL Cholesterol (40-60) mg/dL 09/09/19 09/10/19 09/10/19 Range/Units 20:25 01:16 08:58 Hct (39.0-53.0) % Chloride 108 H (98-107) mmol/L Glucose 124 H (74-99) mg/dL POC Glucose (mg/dL) 100 H (75-99) mg/dL Triglycerides 332 H (<150) mg/dL HDL Cholesterol 21 L (40-60) mg/dL
--- NOTE | 2019-09-10 12:01 | ECHOF ---
Referral Reason:eval LV fxn MEASUREMENTS -------- HEIGHT: 177.8 cm WEIGHT: 92.5 kg BP: 116/72 RVIDd: 3.3 cm (< 3.3) IVSd: 1.1 cm (0.6 - 1.1) LVIDd: 3.9 cm (3.9 - 5.3) LVPWd: 1.1 cm (0.6 - 1.1) IVSs: 1.6 cm LVIDs: 2.9 cm LVPWs: 1.5 cm LAESV Index (A-L): 39.19 ml/m Ao Diam: 3.1 cm (2.0 - 3.7) AV Cusp: 2.4 cm (1.5 - 2.6) LA Diam: 3.9 cm (2.7 - 3.8) MV EXCURSION: 19.436 mm (> 18.000) MV EF SLOPE: 99 mm/s (70 - 150) EPSS: 0.3 cm MV E Dewayne: 0.79 m/s MV DecT: 172 ms MV A Dewayne: 0.62 m/s MV E/A Ratio: 1.27 AR PHT: 1132 ms RAP: 15.00 mmHg RVSP: 39.14 mmHg TAPSE: 29.50 mm FINDINGS -------- Sinus rhythm with extra systolic beats. This was a technically good study. The left ventricular size is normal. Left ventricular wall thickness is normal. Overall left vent ricular systolic function is low-normal with, an EF between 50 - 55 %. Normal LAP Grade 1 Diastolic Dysfunction The right ventricle is mildly enlarged. The right ventricular wall thickness is normal measuring < 5mm. LA is moderately dilated 34-39 ml/m2 The right atrial size is normal. Aortic valve is trileaflet and is mildly thickened. There is mild aortic regurgitation. The mitral valve is normal. The mitral valve leaflets are mildly thickened. Mild mitral annular c alcification present. Mild mitral regurgitation is present. The tricuspid valve appears structurally normal. Mild tricuspid regurgitation present. There is m ild pulmonary hypertension. There is no pulmonic regurgitation present. The aortic root size is normal. The inferior vena cava is mildly dilated. There is no pericardial effusion. CONCLUSIONS -------- 1. Sinus rhythm with extra systolic beats. 2. This was a technically good study. 3. The left ventricular size is normal. 4. Left ventricular wall thickness is normal. 5. Overall left ventricular systolic function is low-normal with, an EF between 50 - 55 %. 6. Normal LAP Grade 1 Diastolic Dysfunction 7. The right ventricle is mildly enlarged. 8. The right ventricular wall thickness is normal measuring < 5mm. 9. LA is moderately dilated 34-39 ml/m2 10. The right atrial size is normal. 11. Aortic valve is trileaflet and is mildly thickened. 12. There is mild aortic regurgitation. 13. The mitral valve is normal. 14. The mitral valve leaflets are mildly thickened. 15. Mild mitral annular calcification present. 16. Mild mitral regurgitation is present. 17. The tricuspid valve appears structurally normal. 18. Mild tricuspid regurgitation present. 19. There is mild pulmonary hypertension. 20. There is no pulmonic regurgitation present. 21. The aortic root size is normal. 22. The inferior vena cava is mildly dilated. 23. There is no pericardial effusion. ESE TEACHER: Margarita Carmichael RDCS
--- NOTE | 2019-09-10 13:06 | NM ---
EXAMINATION TYPE: NM stress cardiolite complete DATE OF EXAM: 09/10/2019 COMPARISON: NONE HISTORY: Chest pain TECHNIQUE: After the intravenous administration of 10.25 mCi Tc 99m Sestamibi - Rest images obtained 50 minutes post injection. The patient exercised using a KASSY protocol and 1 minute prior to peak exercise was injected with 25.4 mCi Tc 99m Sestamibi - Stress images obtained 10 minutes post inject ion. FINDINGS: Targeted heart rate was achieved during performance of the study. Review of stress and rest SPECT markel ges demonstrates no distinct perfusion abnormality. Gated analysis shows normal wall motion with an estimated left ventricular ejection fraction of 54 %. IMPRESSION: No scintigraphic evidence for reversible ischemia
[2019-09-10 13:46] VITALS: BP 134/75; PULSE 48; RESP 16; TEMP 97.7
[2019-09-10 17:06] LABS: Glucose,Whole Blood 152 mg/dL (75-99)
--- NOTE | 2019-09-11 18:40 | P.STRESS ---
- Stress Test Note Stress Test Results/Findings: Exam Performed: NM stress cardiolite complete Exam Date: 09/10/19 Reason for Exam: Chest Pain Height: 6 ft Weight: 92.9 kg Protocol: Meek Stage: 4 Duration of Exercise: 9:48 Resting Heart Rate: 58 Resting Blood Pressure: 118/92 Maximum Achieved Heart Rate: 140 Maximum Achieved Blood Pressure: 168/61 85% PMHR: 134 100% PMHR: 158 METS: 11.3 Technologist Comment: Stress Test Results/Findings: This is a 64-year-old gentleman with history of hypertension, diabetes and hypercholesterolemia and also COPD being evaluated for cardiac status. Stress data Baseline EKG showed a sinus rhythm with VT upon constellation. Blood pressure at rest is 118/92 with pulse rate of 58. Patient walked on the Meek protocol for about 9 minutes and 48 seconds, achieving a max moderate of 140 with a blood pressure 168/61. EKGs taken during and after exercise did not reveal any changes to suggest ischemia. Final impression: #1. Negative stress test #2 patient did not express any chest pain. #3. No arrhythmias detected #4. Report on the nuclear images to begin by the radiologist.
== END 2019-09-10 18:08 | disposition home or self-care (01) ==
LOC: EC 12:05 → 3SCARD 15:10
PROVIDERS: ADMIT Internal Medicine; ATTEND Internal Medicine
DX: R07.89 Other chest pain (principal); I10 Essential (primary) hypertension; E78.1 Pure hyperglyceridemia; E11.9 Type 2 diabetes mellitus without complications; K21.9 Gastro-esophageal reflux disease without esophagitis; J45.20 Mild intermittent asthma, uncomplicated; I25.10 Atherosclerotic heart disease of native coronary artery without angina pectoris; E78.5 Hyperlipidemia, unspecified; J30.2 Other seasonal allergic rhinitis; I49.3 Ventricular premature depolarization; R20.0 Anesthesia of skin; M62.830 Muscle spasm of back; M54.9 Dorsalgia, unspecified; Z79.82 Long term (current) use of aspirin; Z79.84 Long term (current) use of oral hypoglycemic drugs; Z79.1 Long term (current) use of non-steroidal anti-inflammatories (NSAID); Z79.51 Long term (current) use of inhaled steroids; Z79.899 Other long term (current) drug therapy; Z83.3 Family history of diabetes mellitus
CPT/HCPCS: 99285; 36415; 94640 ×2; 94760; 93005; 93017; 93306; 80061; 80053; 80048; 83735 ×2; 84484 ×2; 85025; 85027; 85610; 85730; 71046; 71275; 78452; G0378 ×2; A9500; J1245; Q9967